=== PATIENT | male | born 1985 | race Caucasian/White ===

== ENCOUNTER 2020-12-31 10:17 | Emergency (ER) | payer OTHER ==
[2020-12-31 11:28] LABS: BILIRUBIN NEGATIVE (NEGATIVE); BLOOD NEGATIVE Ery/uL (NEGATIVE); CLARITY CLEAR (CLEAR); COLOR YELLOW (YELLOW); GLUCOSE (U) NORMAL (NORMAL); LEUKOCYTES NEGATIVE Leu/uL (NEGATIVE); NITRITE NEGATIVE (NEGATIVE); PROTEIN NEGATIVE (NEGATIVE); UROBILINOGEN 0.2 mg/dL (0.2-1.0)
[2020-12-31 11:32] LABS: BASOPHIL 0.8 % (0-2); HCT 43.9 % (42.0-52.0); HGB 15.4 g/dl (13.2-18.0); LYMPHOCYTE 38.9 % (15-48); MCH 33.3 pg (25.0-31.0); MCHC 35.1 g/dL (32.0-36.0); MONOCYTE 7.1 % (0-12); MPV 10.8 fL (6.0-9.5); NEUTROPHIL 47.9 % (41-80); NRBC 0; PLT 205 K/uL (150-400); RBC 4.62 M/uL (4.70-6.00); WBC 7.9 K/uL (4.0-10.5)
[2020-12-31 11:54] LABS: ALBUMIN 3.9 g/dL (3.4-5.0); BILIRUBIN - TOTAL 0.5 mg/dL (0.2-1.0); BUN/CREAT RATIO (CALC) 16.7 RATIO; CREATININE 0.9 mg/dL (0.67-1.17); GLOBULIN (CALCULATION) 3.4 g/dL; TOTAL PROTEIN 7.3 g/dL (6.4-8.2)
[2020-12-31] MEDS ORDERED: ROBAXIN750 MG PO (15:24)
[2020-12-31] MEDS ORDERED: NAPROXEN500 MG PO (15:24)
== END 2020-12-31 15:39 | disposition home or self-care (01) ==
LOC: FER 10:17
PROVIDERS: Emergency Medicine
DX: R10.9 Unspecified abdominal pain (principal); F17.210 Nicotine dependence, cigarettes, uncomplicated
CPT/HCPCS: 36415; 80053; 81003; 83690; 84145; 85025; J1885; J2405; J7030; Q9967